=== PATIENT | male | born 1990 | race Caucasian/White ===

== ENCOUNTER 2021-01-01 23:03 | Emergency (ER) | payer BC ==
[2021-01-01] MEDS ORDERED: Lidocaine 1% 10 ML MDV INJECT ONE (23:22)
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
[2021-01-02] MEDS ORDERED: Sodium Chloride 0.9% 1,000 ML IV SCH (00:45)
[2021-01-02] MEDS ORDERED: Ondansetron 4 MG/2 ML SDV IVPUSH ONE ×2 (00:50)
[2021-01-02] MEDS ORDERED: Ondansetron 4 MG/2 ML SDV ONE (00:51)
--- NOTE | 2021-01-02 06:53 | CR ---
Soft tissue neck: AP and lateral views of the neck were obtained. Soft tissue swelling is seen at the base of the left neck. Overlying bandage is noted. Minimal scoliosis is seen within the spine. No radiopaque foreign object is appreciated. Impression: 1. Findings as noted above. 2. No radiopaque foreign object or acute osseous finding is seen. Diagnostic code #2
--- NOTE | 2021-01-02 06:54 | CR ---
Chest: Frontal view of the chest is obtained. Comparison: Prior chest x-ray of 02/07/15. Heart size and mediastinum are normal. Lungs are clear with no acute parenchymal change. No acute osseous finding is appreciated. Minimal scoliosis is noted. Impression: 1. Nothing acute is seen on frontal chest x-ray. Diagnostic code #2
== END 2021-01-02 01:00 ==
LOC: JD.ED 23:03
DX: S11.91XA Laceration without foreign body of unspecified part of neck, initial encounter (principal); S40.019A Contusion of unspecified shoulder, initial encounter; Z20.822 Contact with and (suspected) exposure to COVID-19; Z88.2 Allergy status to sulfonamides; Z72.0 Tobacco use; W25.XXXA Contact with sharp glass, initial encounter
CPT/HCPCS: 36415; 70360; 70360-26; 71045; 71045-26; 80053; 80179; 85007; 85027; 96374; 99284; 99285-25; J2405; J7030; U0002